=== PATIENT | female | born 1980 | race Caucasian/White ===

== ENCOUNTER 2020-06-12 08:24 | Emergency (ER) | payer OTHER ==
[~2020-06-12] VITALS: Ht 152.4 cm; Wt 72.1 kg
[~2020-06-12 08:24] MED LIST: ACETAMINOPHEN-1 EAC1 PO; ADDERALL 30 MG30 MG PO; IBUPROFEN 800800 M1 PO; Integra; MACROBID 100 M100 M1 PO; MIRALAX255 GM; NORCO 5-325 TA1 EACH OR; PHENERGAN 25 MG25 M1 PO; SENOKOT-S1 TA1 PO; YASMIN 28 TABL1 EACH PO
[2020-06-12 08:25] VITALS: BP 196/55
[2020-06-12] MEDS ORDERED: PENICILLIN VK500 MG PO (09:05)
== END 2020-06-12 09:13 | disposition home or self-care (01) ==
LOC: ER 08:24
DX: K04.7 Periapical abscess without sinus (principal); J45.909 Unspecified asthma, uncomplicated